=== PATIENT | female | born 1980 | race Caucasian/White ===

== ENCOUNTER 2024-05-19 01:50 | Emergency (ER) | payer MEDICAID ==
[~2024-05-19] VITALS: Ht 167.6 cm; Wt 54.5 kg
[2024-05-19 05:51] VITALS: BP 124/89; PULSE 101; RESP 16; TEMP 99; O2SAT 97
== END 2024-05-19 05:54 | disposition home or self-care (01) ==
LOC: ER 01:51
DX: K21.9 Gastro-esophageal reflux disease without esophagitis
CPT/HCPCS: 99283